=== PATIENT | male | born 1980 | race Caucasian/White ===

== ENCOUNTER 2017-05-20 07:25 | Emergency (ER) | payer BC ==
[~2017-05-20 07:25] MED LIST: ALBUTEROL17 GM INH; ALLEGRA ALLERG180 MG; ALLEGRA PO; AMOXICILLIN500 M1 PO; BENTYL20 MG PO; BENZONATATE; CELEXA PO; GAS RELIEF125 M1 PO; IBUPROFEN; KEFLEX250 M1 PO; LISINOPRIL20 MG PO; LORTAB 7.5-5001 TAB PO; NEXIUM PO; PHENERGAN DM PO; PREDNISONE PO; PROCTOFOAM-HC F10 GM PR; SYNTHROID175 MCG PO; ZITHROMAX1 G/PKT PO
== END 2017-05-20 08:12 | disposition home or self-care (01) ==
LOC: SED 07:25
DX: L23.9 Allergic contact dermatitis, unspecified cause (principal); I10 Essential (primary) hypertension; Z79.899 Other long term (current) drug therapy
CPT/HCPCS: 96372; 99282; J1040